=== PATIENT | female | born 1965 | race Caucasian/White ===

== ENCOUNTER 2016-10-04 20:28 | Emergency (ER) | payer MEDICARE ==
[2016-02-03 13:04] VITALS: BMI 37.9
[~2016-10-04 20:28] MED LIST: APAP/BUTALBITAL1 TAB PO; ASCORBIC ACID500 MG PO; CALTRATE-600600 MG PO; KEPPRA500 MG PO; KLONOPIN1 MG PO; LAMICTAL200 MG PO; LEVOTHROID75 MCG PO; MICRO-K10 MEQ PO; MOTRIN600 MG PO; PERCOCET 5/3251 TA1 PO; PHENERGAN25 M1 PO; PRILOSEC20 MG PO; VITAMIN D5000 UNIT PO
[2016-10-04 21:15] LABS: BASOPHILS 0.3 % (0-2); EOSINOPHILS 1.1 % (0-7); HEMOGLOBIN 15.4 g/dL (12-16); IMMATURE GRANULOCYTES 0.3 % (0-5); LYMPHOCYTES 20.7 % (15-50); MCH 30.6 pg (26.0-34.0); MCHC 32.8 g/dL (31.0-37.0); MCV 93.4 fL (80.0-100.0); MEAN PLATELET VOLUME 10.5 fL (7.4-10.4); MONOCYTES 7.5 % (2-11); NEUTROPHILS 70.1 % (40-80); PLATELET COUNT 286 10x3/uL (130-400); RBC 5.03 10x6/uL (4.00-5.40); WBC 12.8 10x3/uL (4.8-10.8)
[2016-10-04 21:42] LABS: BILIRUBIN - TOTAL 0.35 mg/dL (0.2-1.3); CALCIUM 9.5 mg/dL (8.5-10.1); CARBON DIOXIDE 26.3 mmol/L (21.0-32.0); CREATININE - SERUM 0.9 mg/dL (0.6-1.3); POTASSIUM - SERUM 4.3 mmol/L (3.5-5.1); PROTEIN - SERUM 8.2 g/dL (6.4-8.2)
[2016-10-05 01:45] LABS: APPEARANCE CLEAR (CLEAR); BILIRUBIN NEGATIVE (NEGATIVE); COLOR STRAW (YELLOW); GLUCOSE NEGATIVE (NEGATIVE); KETONE NEGATIVE (NEGATIVE); LEUKOCYTE ESTERASE 1+ (NEGATIVE); NITRITE NEGATIVE (NEGATIVE); PROTEIN NEGATIVE (NEGATIVE); UROBILINOGEN NORMAL (NORMAL)
[2016-10-05 01:46] LABS: BACTERIA FEW /hpf (NONE SEEN); EPITHELIAL CELLS 0-5 /hpf (0-5); RED CELLS - URINE 0-5 /hpf (0-5); WHITE CELLS - URINE 0-5 /hpf (0-5)
== END 2016-10-05 03:00 | disposition home or self-care (01) ==
LOC: D.ER 20:28
PROVIDERS: Family Medicine; Physician Assistant Medical
DX: G40.909 Epilepsy, unspecified, not intractable, without status epilepticus (principal)

== ENCOUNTER → 2016-10-07 16:39 | Outpatient (CLI) | payer MEDICARE ==
[2016-02-03 13:04] VITALS: BMI 37.9
== END | disposition home or self-care (01) ==
LOC: D.MAMMO 15:15
DX: Z12.31 Encounter for screening mammogram for malignant neoplasm of breast (principal)

== ENCOUNTER 2016-10-29 21:05 | Emergency (ER) | payer MEDICARE ==
[2016-02-03 13:04] VITALS: BMI 37.9
[2016-10-29 22:05] LABS: APPEARANCE CLEAR (CLEAR); BILIRUBIN NEGATIVE (NEGATIVE); COLOR YELLOW (YELLOW); GLUCOSE NEGATIVE (NEGATIVE); KETONE NEGATIVE (NEGATIVE); LEUKOCYTE ESTERASE NEGATIVE (NEGATIVE); NITRITE NEGATIVE (NEGATIVE); PROTEIN NEGATIVE (NEGATIVE); SPECIFIC GRAVITY 1.005 (1.005-1.020); UROBILINOGEN NORMAL (NORMAL)
[2016-10-29 22:15] LABS: BASOPHILS 0.4 % (0-2); EOSINOPHILS 4.4 % (0-7); HEMATOCRIT 44.5 % (36.0-48.0); HEMOGLOBIN 14.3 g/dL (12-16); IMMATURE GRANULOCYTES 0.2 % (0-5); LYMPHOCYTES 29.6 % (15-50); MCH 30.1 pg (26.0-34.0); MCHC 32.1 g/dL (31.0-37.0); MCV 93.7 fL (80.0-100.0); MONOCYTES 8.3 % (2-11); NEUTROPHILS 57.1 % (40-80); PLATELET COUNT 264 10x3/uL (130-400); RBC 4.75 10x6/uL (4.00-5.40); RDW 14.2 % (11.5-14.5); WBC 9.5 10x3/uL (4.8-10.8)
[2016-10-29 22:38] LABS: ALBUMIN 3.7 g/dL (3.4-5.0); ANION GAP 11.4 mmol/L (8-16); BILIRUBIN - TOTAL 0.42 mg/dL (0.2-1.3); CALCIUM 9.4 mg/dL (8.5-10.1); CARBON DIOXIDE 29.2 mmol/L (21.0-32.0); POTASSIUM - SERUM 3.6 mmol/L (3.5-5.1)
== END 2016-10-29 23:55 | disposition home or self-care (01) ==
LOC: D.ER 21:05
PROVIDERS: Emergency Medicine
DX: G40.909 Epilepsy, unspecified, not intractable, without status epilepticus (principal); R53.1 Weakness; R53.83 Other fatigue; I45.10 Unspecified right bundle-branch block

== ENCOUNTER → 2017-01-30 12:09 | Outpatient (CLI) | payer MEDICARE ==
[2016-02-03 13:04] VITALS: BMI 37.9
== END | disposition home or self-care (01) ==
LOC: D.NM 12:09
DX: R63.4 Abnormal weight loss (principal); R11.2 Nausea with vomiting, unspecified; K21.9 Gastro-esophageal reflux disease without esophagitis

== ENCOUNTER 2017-11-11 21:06 | Emergency (ER) | payer MEDICARE ==
[~2017-11-11] VITALS: Ht 162.6 cm; Wt 90.7 kg
[2017-11-11 21:19] VITALS: Ht 162.6 cm; Wt 90.7 kg
[2017-11-11] MEDS ORDERED: ZESTRIL20 MG PO (21:21)
[2017-11-11] MEDS ORDERED: MYSOLINE 50 MG50 MG PO (21:21)
[2017-11-11 22:39] LABS: BASOPHILS 0.4 % (0-2); HEMATOCRIT 43.1 % (36.0-48.0); HEMOGLOBIN 14.2 g/dL (12-16); IMMATURE GRANULOCYTES 0.3 % (0-5); LYMPHOCYTES 26.5 % (15-50); MCH 29.9 pg (26.0-34.0); MCHC 32.9 g/dL (31.0-37.0); MCV 90.7 fL (80.0-100.0); MEAN PLATELET VOLUME 9.9 fL (7.4-10.4); MONOCYTES 9.3 % (2-11); NEUTROPHILS 61.5 % (40-80); PLATELET COUNT 283 10x3/uL (130-400); RBC 4.75 10x6/uL (4.00-5.40); RDW 14.4 % (11.5-14.5); WBC 8.9 10x3/uL (4.8-10.8)
[2017-11-11 22:55] LABS: ALBUMIN 3.8 g/dL (3.4-5.0); ANION GAP 10.4 mmol/L (8-16); BILIRUBIN - TOTAL 0.37 mg/dL (0.2-1.3); CARBON DIOXIDE 27.8 mmol/L (21.0-32.0); POTASSIUM - SERUM 4.2 mmol/L (3.5-5.1)
[2017-11-12 00:02] LABS: APPEARANCE CLEAR (CLEAR); BILIRUBIN NEGATIVE (NEGATIVE); COLOR YELLOW (YELLOW); GLUCOSE NEGATIVE (NEGATIVE); KETONE NEGATIVE (NEGATIVE); NITRITE NEGATIVE (NEGATIVE); PROTEIN NEGATIVE (NEGATIVE); SPECIFIC GRAVITY 1.015 (1.005-1.020); UROBILINOGEN NORMAL (NORMAL)
[2017-11-12 01:26] VITALS: BP 145/64
== END 2017-11-12 01:05 | disposition home or self-care (01) ==
LOC: D.ER 21:06
PROVIDERS: Family Medicine
DX: F41.9 Anxiety disorder, unspecified (principal); G40.909 Epilepsy, unspecified, not intractable, without status epilepticus; E07.89 Other specified disorders of thyroid

== ENCOUNTER 2018-01-11 12:07 | Emergency (ER) | payer MEDICARE ==
[~2018-01-11] VITALS: Ht 162.6 cm; Wt 100.0 kg
[~2018-01-11 12:07] MED LIST changes: +MYSOLINE 50 MG50 MG PO; +ZESTRIL20 MG PO
[2018-01-11 12:25] VITALS: Ht 162.6 cm; Wt 100.0 kg
[2018-01-11 15:11] LABS: BASOPHILS 0.1 % (0-2); EOSINOPHILS 0 % (0-7); HEMATOCRIT 42.7 % (36.0-48.0); HEMOGLOBIN 14.4 g/dL (12-16); IMMATURE GRANULOCYTES 0.3 % (0-5); LYMPHOCYTES 10.1 % (15-50); MCH 30.6 pg (26.0-34.0); MCHC 33.7 g/dL (31.0-37.0); MCV 90.7 fL (80.0-100.0); MEAN PLATELET VOLUME 10.1 fL (7.4-10.4); MONOCYTES 5.2 % (2-11); NEUTROPHILS 84.3 % (40-80); PLATELET COUNT 304 10x3/uL (130-400); RBC 4.71 10x6/uL (4.00-5.40); RDW 14.5 % (11.5-14.5); WBC 17.6 10x3/uL (4.8-10.8)
[2018-01-11 15:32] LABS: ALBUMIN 3.8 g/dL (3.4-5.0); ANION GAP 15.4 mmol/L (8-16); BILIRUBIN - TOTAL 0.31 mg/dL (0.2-1.3); CALCIUM 9.5 mg/dL (8.5-10.1); CARBON DIOXIDE 26.1 mmol/L (21.0-32.0); CREATININE - SERUM 0.9 mg/dL (0.6-1.3); POTASSIUM - SERUM 4.5 mmol/L (3.5-5.1)
[2018-01-11] MEDS ORDERED: MIRALAX17 GM PO (15:36)
[2018-01-11 18:19] VITALS: BP 135/074
== END 2018-01-11 18:21 | disposition home or self-care (01) ==
LOC: D.ER 12:07
PROVIDERS: Emergency Medicine
DX: J18.9 Pneumonia, unspecified organism (principal); K59.00 Constipation, unspecified; I10 Essential (primary) hypertension; G40.909 Epilepsy, unspecified, not intractable, without status epilepticus

== ENCOUNTER 2018-01-16 17:48 | Emergency (ER) | payer MEDICARE ==
[~2018-01-16] VITALS: Ht 162.6 cm; Wt 100.0 kg
[~2018-01-16 17:48] MED LIST changes: +MIRALAX17 GM PO
[2018-01-16 18:28] VITALS: Ht 162.6 cm; Wt 100.0 kg
[2018-01-16 19:12] LABS: BASOPHILS 0.4 % (0-2); EOSINOPHILS 3.8 % (0-7); HEMATOCRIT 42.2 % (36.0-48.0); HEMOGLOBIN 14.1 g/dL (12-16); IMMATURE GRANULOCYTES 0.3 % (0-5); LYMPHOCYTES 32.3 % (15-50); MCH 30.7 pg (26.0-34.0); MCHC 33.4 g/dL (31.0-37.0); MCV 91.7 fL (80.0-100.0); MONOCYTES 6.9 % (2-11); NEUTROPHILS 56.3 % (40-80); PLATELET COUNT 325 10x3/uL (130-400); RDW 14.6 % (11.5-14.5); WBC 9.8 10x3/uL (4.8-10.8)
[2018-01-16 19:22] LABS: APPEARANCE CLEAR (CLEAR); BILIRUBIN NEGATIVE (NEGATIVE); COLOR STRAW (YELLOW); GLUCOSE NEGATIVE (NEGATIVE); KETONE NEGATIVE (NEGATIVE); NITRITE NEGATIVE (NEGATIVE); PROTEIN NEGATIVE (NEGATIVE); UROBILINOGEN NORMAL (NORMAL)
[2018-01-16 19:22] LABS: ALBUMIN 4.2 g/dL (3.4-5.0); ANION GAP 12.8 mmol/L (8-16); BILIRUBIN - TOTAL 0.39 mg/dL (0.2-1.3); CALCIUM 9.8 mg/dL (8.5-10.1); CARBON DIOXIDE 29.3 mmol/L (21.0-32.0); POTASSIUM - SERUM 4.1 mmol/L (3.5-5.1); PROTEIN - SERUM 8.2 g/dL (6.4-8.2)
[2018-01-16 19:23] LABS: BACTERIA MODERATE /hpf (NONE SEEN); RED CELLS - URINE 0-5 /hpf (0-5)
[2018-01-17] MEDS ORDERED: ACETAMINOPHEN500 M1 PO (00:56)
[2018-01-17] MEDS ORDERED: CYCLOBENZAPRINE10 MG PO (00:56)
[2018-01-17] MEDS ORDERED: IBUPROFEN800 MG PO (00:56)
[2018-01-17 02:20] VITALS: BP 139/85
== END 2018-01-17 02:22 | disposition home or self-care (01) ==
LOC: D.ER 17:48
PROVIDERS: Family Medicine
DX: M54.5 Low back pain (principal); E07.9 Disorder of thyroid, unspecified; I10 Essential (primary) hypertension

== ENCOUNTER 2018-04-20 17:26 | Emergency (ER) | payer MEDICARE ==
[~2018-04-20] VITALS: Ht 162.6 cm; Wt 100.2 kg
[~2018-04-20 17:26] MED LIST changes: +ACETAMINOPHEN500 M1 PO; +CYCLOBENZAPRINE10 MG PO; +IBUPROFEN800 MG PO
[2018-04-20 18:24] VITALS: Ht 162.6 cm; Wt 100.2 kg
[2018-04-20 18:59] LABS: BASOPHILS 0.3 % (0-2); EOSINOPHILS 1.4 % (0-7); HEMATOCRIT 43.5 % (36.0-48.0); HEMOGLOBIN 14.5 g/dL (12-16); IMMATURE GRANULOCYTES 0.6 % (0-5); LYMPHOCYTES 10.2 % (15-50); MCHC 33.3 g/dL (31.0-37.0); MCV 92.9 fL (80.0-100.0); MEAN PLATELET VOLUME 9.8 fL (7.4-10.4); MONOCYTES 13.2 % (2-11); NEUTROPHILS 74.3 % (40-80); PLATELET COUNT 284 10x3/uL (130-400); RBC 4.68 10x6/uL (4.00-5.40); RDW 14.8 % (11.5-14.5); WBC 9.4 10x3/uL (4.8-10.8)
[2018-04-20 19:34] LABS: ALBUMIN 4.3 g/dL (3.4-5.0); ANION GAP 15.4 mmol/L (8-16); BILIRUBIN - TOTAL 0.37 mg/dL (0.2-1.3); CALCIUM 9.2 mg/dL (8.5-10.1); CARBON DIOXIDE 26.7 mmol/L (21.0-32.0); POTASSIUM - SERUM 4.1 mmol/L (3.5-5.1); PROTEIN - SERUM 8.3 g/dL (6.4-8.2)
[2018-04-20] MEDS ORDERED: TESSALON PERLE100 MG PO (21:41)
[2018-04-20] MEDS ORDERED: TAMIFLU75 MG PO (21:41)
[2018-04-20] MEDS ORDERED: ACETAMINOPHEN500 M1 PO (21:41)
[2018-04-20 22:00] VITALS: BP 135/90
== END 2018-04-20 22:00 | disposition home or self-care (01) ==
LOC: D.ER 17:26
PROVIDERS: Family Medicine
DX: J09.X2 Influenza due to identified novel influenza A virus with other respiratory manifestations (principal)

== ENCOUNTER 2018-06-01 19:52 | Inpatient (IN) | payer MEDICARE ==
[~2018-06-01] VITALS: Ht 162.6 cm; Wt 101.4 kg
[~2018-06-01 19:52] MED LIST changes: +TAMIFLU75 MG PO; +TESSALON PERLE100 MG PO
--- NOTE | 2018-06-01 20:14 | NUR ---
PT IN WITH C/O NEAR SYNCOPE, DIAGNOSED WITH THE FLU 3 DAYS AGO, FELL YESTERDAY, STATES SHE STARTING FEELING LIKE SHE WAS GOING TO FALL AGAIN, CALLED EMS. CALL LIGHT WITHIN IN REACH, PT IS A+O X3.
[2018-06-01 21:02] LABS: BASOPHILS 0.6 % (0-2); EOSINOPHILS 1.7 % (0-7); HEMATOCRIT 44.5 % (36.0-48.0); HEMOGLOBIN 14.4 g/dL (12-16); IMMATURE GRANULOCYTES 0.4 % (0-5); MCHC 32.4 g/dL (31.0-37.0); MCV 92.7 fL (80.0-100.0); MEAN PLATELET VOLUME 10.6 fL (7.4-10.4); MONOCYTES 13.8 % (2-11); NEUTROPHILS 54.5 % (40-80); PLATELET COUNT 247 10x3/uL (130-400); RDW 14.8 % (11.5-14.5); WBC 7.1 10x3/uL (4.8-10.8)
[2018-06-01 21:18] LABS: APTT 29.3 SECONDS (22.8-39.4); INR 1.02 (0.85-1.17); PROTIME 12.9 SECONDS (11.6-15.0)
[2018-06-01 21:33] LABS: ALBUMIN 3.7 g/dL (3.4-5.0); ALKALINE PHOSPHATASE 141 U/L (46-116); ALT (SGPT) 23 U/L (10-68); BILIRUBIN - TOTAL 0.43 mg/dL (0.2-1.3); CALC OSMOLALITY 275 mosm/kg (275-300); CARBON DIOXIDE 26.5 mmol/L (21.0-32.0); CHLORIDE - SERUM 101 mmol/L (98-107); CREATININE - SERUM 0.8 mg/dL (0.6-1.3); GLUCOSE 99 mg/dL (74-106); POTASSIUM - SERUM 4.1 mmol/L (3.5-5.1); PROTEIN - SERUM 7.8 g/dL (6.4-8.2); SODIUM 138 mmol/L (136-145); UREA NITROGEN 12 mg/dL (7-18); eGFR NON AFRICAN AMERICAN 79 mL/min (90-120)
[2018-06-01 21:42] LABS: CREATINE KINASE 97 UL (21-215)
[2018-06-01 21:51] LABS: TROPONIN-I 0.219 ng/mL (0.000-0.060)
[2018-06-01 22:00] VITALS: BP 131/80
[2018-06-01 22:24] LABS: APPEARANCE CLEAR (CLEAR); BILIRUBIN NEGATIVE (NEGATIVE); COLOR YELLOW (YELLOW); GLUCOSE NEGATIVE (NEGATIVE); KETONE NEGATIVE (NEGATIVE); NITRITE NEGATIVE (NEGATIVE); PROTEIN NEGATIVE (NEGATIVE); SPECIFIC GRAVITY 1.005 (1.005-1.020); UROBILINOGEN NORMAL (NORMAL)
[2018-06-01 22:25] LABS: BACTERIA FEW /hpf (NONE SEEN); RED CELLS - URINE OCC /hpf (0-5); WHITE CELLS - URINE OCC /hpf (0-5)
--- NOTE | 2018-06-01 23:30 | NUR ---
ATTEMPTED TO CALL REPORT, THE NURSE WILL CALL ME BACK.
--- NOTE | 2018-06-01 23:43 | NUR ---
EMERGENCY CONTACT: TAHIR LEE [phone] CA[employer] TR[employer]MER FROM [facility].
--- NOTE | 2018-06-02 00:02 | NUR ---
ATTEMPTED TO CALL REPORT, NURSE IN IN A PATIENTS ROOM THEY WILL HAVE HER CALL ME BACK.
--- NOTE | 2018-06-02 00:08 | NUR ---
ATTEMPTED TO CALL REPORT, NURSE STILL IN PATIENT ROOM AND SHE WILL CALL ME BACK.
--- NOTE | 2018-06-02 00:55 | NUR ---
53 yr old female admitted from ED to Med 2. Alert and oriented x 4 but slow to answer. At times answers don't relate to the questions asked. States she lives in an [facility] across from [facility]. does not know the name. has been having dizzy spells for about two weeks and has been geting weaker. Feels like her movements are slower, states her teacher at [facility] also noticed she was not moving right. has fallen x 2 on 05/30 and 05/31/18. States she hit her head. Had CT head scan in ED. No complaints of pain or discomfort at this time. Settled into room 217.
[2018-06-02 01:12] VITALS: BP 126/83
--- NOTE | 2018-06-02 02:35 | NUR ---
Eyes closed, sleeping, respirations easy and regular.
[2018-06-02 04:11] VITALS: BP 118/69
--- NOTE | 2018-06-02 06:50 | NUR ---
Second EKG done, first was done in ED.
[2018-06-02 09:13] VITALS: BP 121/71
[2018-06-02 11:30] VITALS: BP 102/65; BP 120/66; BP 74/28
--- NOTE | 2018-06-02 12:27 | NUR ---
ORTHOSTATIC BP COMPLETE: LYING 102/65, 91 SITTING 74/28, 91 STANDING 120/66, 84
--- NOTE | 2018-06-02 12:44 | NUR ---
BILAT SCDS ON.
[2018-06-02 15:30] VITALS: BP 102/53; BP 102/59; BP 121/63
--- NOTE | 2018-06-02 16:00 | NUR ---
1530 ORHTOSTATIC BLOOD PRESSURES COMPLETE LYING 102/53, 88 SITTING 102/59, 87 STANDING 121/63, 100
[2018-06-02 19:45] VITALS: BP 102/53
--- NOTE | 2018-06-02 19:55 | NUR ---
INITIAL ROUNDS COMPLETED AT 1910 HRS. PT DENIED ANY DISCOMFORT. ASSESSMENT COMPLETED AT 1950 HRS. VSS. ALERT AND ORIENTED. IV TO RFA WITH NS AT 50CC/HR. IV PATENT. SR PER CM HR 85. LUNGS DIMINISHED IN BASES BILAT. TORRES. SCD'S IN USE. REMOVED AND SKIN INSPECTED. NO BREAKDOWN NOTED. WILL CONTINUE TO MONITOR. SR UP X2, CALL LIGHT WITHIN REACH.
--- NOTE | 2018-06-02 21:49 | NUR ---
SHOWER DONE. BED LINENS CHANGED. PT DENIED ANY DISCOMFORT. PM MEDS GIVEN. SR UP X2,CALL LIGHT WITHIN REACH.
[2018-06-03] VITALS (8 sets, daily range): BP systolic 100–148; BP diastolic 54–76
--- NOTE | 2018-06-03 00:20 | NUR ---
PT AWAKE; DENIES ANY DISCOMFORT. ORTHOSTATIC VS DONE. LYING HR 78 BP 109/65. SITTING HR 79 BP 135/73. STANDING HR 89 BP 109/70. CALL LIGHT WITHIN REACH.
--- NOTE | 2018-06-03 02:43 | NUR ---
PT RESTING WITH EYES CLOSED. RESP EVEN AND REGULAR. SR UP X2, CALL LIGHT WITHIN REACH.
--- NOTE | 2018-06-03 04:34 | NUR ---
PT RESTING WITH EYES CLOSED. RESP EVEN AND REGULAR. SR UP X2, CALL LIGHT WITHIN REACH.
[2018-06-03 04:58] LABS: BASOPHILS 0.4 % (0-2); EOSINOPHILS 3.4 % (0-7); HEMATOCRIT 39.6 % (36.0-48.0); HEMOGLOBIN 12.7 g/dL (12-16); IMMATURE GRANULOCYTES 0.5 % (0-5); LYMPHOCYTES 38.9 % (15-50); MCHC 32.1 g/dL (31.0-37.0); MCV 93.4 fL (80.0-100.0); MEAN PLATELET VOLUME 10.2 fL (7.4-10.4); MONOCYTES 14.7 % (2-11); NEUTROPHILS 42.1 % (40-80); PLATELET COUNT 243 10x3/uL (130-400); RBC 4.24 10x6/uL (4.00-5.40); RDW 15.4 % (11.5-14.5); WBC 7.3 10x3/uL (4.8-10.8)
[2018-06-03 05:34] LABS: CALC OSMOLALITY 282 mosm/kg (275-300); CALCIUM 8.3 mg/dL (8.5-10.1); CARBON DIOXIDE 24.9 mmol/L (21.0-32.0); CHLORIDE - SERUM 107 mmol/L (98-107); CREATININE - SERUM 0.8 mg/dL (0.6-1.3); GLUCOSE 97 mg/dL (74-106); POTASSIUM - SERUM 3.7 mmol/L (3.5-5.1); SODIUM 142 mmol/L (136-145); UREA NITROGEN 13 mg/dL (7-18); eGFR NON AFRICAN AMERICAN 79 mL/min (90-120)
--- NOTE | 2018-06-03 06:23 | NUR ---
VSS THROUGHOUT NIGHT. SR PER CM. PT DENIED ANY DISCOMFORT. NEEDS MET;WILL CONTINUE TO MONITOR.
--- NOTE | 2018-06-03 10:52 | NUR ---
LEAVING FOR CT BY BED.
--- NOTE | 2018-06-03 19:55 | NUR ---
INITIAL ROUNDS COMPLETED AT 1910 HRS. PT DENIED ANY DISCOMFORT. ASSESSMENT COMPLETED AT 1935HRS. SR PER CMHR 82. IV TO RFA WITH NS AT 50CC/HR. IV PATENT. LUNGS DIMINISHED IN BASES BILAT. TORRES. PALBAPLE PERIPHERAL PULSES. SCD'S IN USE. REMOVED AND SKIN INSPECTED. NO BREAKDOWN NOTED. SR UP X2,CALL LIGHT WITHIN REACH.
--- NOTE | 2018-06-03 22:25 | NUR ---
PM MEDS GIVEN. PT CURRENTLY RESTING WITH EYES CLOSED. RESP EVEN AND REGULAR. SR UP X2, CALL LIGHT WITHIN REACH.
[2018-06-04] VITALS (7 sets, daily range): BP systolic 103–138; BP diastolic 51–77; Ht 162.6 cm; Wt 101.4 kg
--- NOTE | 2018-06-04 00:14 | NUR ---
PT RESTING WITH EYES CLOSED. RESP EVEN AND REGULAR. SR UP X2, CALL LIGHT WITHIN REACH.
--- NOTE | 2018-06-04 02:06 | NUR ---
PT RESTING WITH EYES CLOSED. RESP EVEN AND REGULAR. SR UP X2, CALL LIGHT WITHIN REACH.
--- NOTE | 2018-06-04 03:51 | NUR ---
PT RESTING WITH EYES CLOSED. RESP EVEN AND REGULAR. SR UP X2, CALL LIGHT WITHIN REACH.
--- NOTE | 2018-06-04 05:53 | NUR ---
VSS THROUGHOUT NIGHT. SR PER CM. PT DENIED ANY DISCOMFORT. NEEDS MET; WILL CONTINUE TO MONITOR.
[2018-06-04 06:11] LABS: BASOPHILS 0.5 % (0-2); EOSINOPHILS 5.7 % (0-7); HEMATOCRIT 40.4 % (36.0-48.0); HEMOGLOBIN 12.9 g/dL (12-16); IMMATURE GRANULOCYTES 0.2 % (0-5); LYMPHOCYTES 35.1 % (15-50); MCH 29.8 pg (26.0-34.0); MCHC 31.9 g/dL (31.0-37.0); MCV 93.3 fL (80.0-100.0); MEAN PLATELET VOLUME 10.2 fL (7.4-10.4); MONOCYTES 8.5 % (2-11); PLATELET COUNT 268 10x3/uL (130-400); RBC 4.33 10x6/uL (4.00-5.40); RDW 15.2 % (11.5-14.5)
[2018-06-04 06:19] LABS: CALC OSMOLALITY 279 mosm/kg (275-300); CALCIUM 8.6 mg/dL (8.5-10.1); CARBON DIOXIDE 25.8 mmol/L (21.0-32.0); CHLORIDE - SERUM 105 mmol/L (98-107); CREATININE - SERUM 0.7 mg/dL (0.6-1.3); GLUCOSE 98 mg/dL (74-106); SODIUM 141 mmol/L (136-145); UREA NITROGEN 11 mg/dL (7-18); eGFR NON AFRICAN AMERICAN > 90 mL/min (90-120)
--- NOTE | 2018-06-04 20:35 | NUR ---
RESUMING PATIENT CARE. PATIENT IS ALERT AND ORIENTED. RESPIRATIONS ARE EVEN AND UNLABORED. NO S/S OF DISTRESS. NO C/O PAIN. CALL LIGHT WITHIN REACH. WILL CPOC.
[2018-06-05 01:20] VITALS: BP 118/65
[2018-06-05 01:24] VITALS: BP 133/73
[2018-06-05 01:25] VITALS: BP 134/77
--- NOTE | 2018-06-05 02:27 | NUR ---
ORTHOSTATIC VITALS COMPLETE: LAYING BP 118/65, SITTING BP 133/73, STANDING BP 134/77
--- NOTE | 2018-06-05 02:47 | NUR ---
PATIENT RESTING COMFORTABLY IN BED. RESPIRATIONS ARE EVEN AND UNLABORED. NO S/S OF DISTRESS. NS INFUSING AT 50 ML/HR. CALL LIGHT WITHIN REACH. WILL CPOC.
[2018-06-05 05:33] VITALS: BP 124/67
[2018-06-05 08:00] VITALS: BP 110/40
--- NOTE | 2018-06-05 08:00 | NUR ---
PT RESTING IN BED, SHIFT ASSESSMENT PERFORMED. AM MEDS GIVEN ORDERED, DENIES PAIN AT THIS TIME, DENIES ANY OTHER NEEDS AT THIS TIME, CALL LIGHT WITHIN REACH, WILL CONT TO FOLLOW PLAN OF CARE
--- NOTE | 2018-06-05 09:49 | NUR ---
PAGED TO INQUIRE PLANNING AND HE STATES HE WILL DISCUSS WITH ALL TEST WERE NEGATIVE FOR CLOT. DISCUSSED WITH PT AND FAMILY AND WILL CTM.
[2018-06-05 11:40] VITALS: BP 122/86
--- NOTE | 2018-06-05 14:47 | MORECARE ---
CASE MANAGEMENT DISCHARGE SUMMARY PATIENT: JAKE HAGEN UNIT: [id number] ADM DATE: 06/02/18 AGE: 53 : 63 SEX: F ROOM/BED: D.1367 AUTHOR: GREGORY BETH PHYSICIAN: REFERRING PHYSICIAN: EHSAN COYLE MD DATE OF SERVICE: 06/05/18 Discharge Plan Patient Name: JAKE HAGEN Facility: [facility]:[place] : 1965 Planned Disposition: Home Anticipated Discharge Date: 06/05/18 Discharge Date: Expected LOS: 3 Initial Reviewer: [email or web address] Initial Review Date: 06/01/2018 Generated: 06/05/18 3:47 pm Patient Name: JAKE HAGEN Page [id number] at 1447 All edits/amendments must be made on the electronic document DICTATION DATE: 06/05/18 1446 BATT PACKER: YAYO 06/05/18 1446 RPT#: [id number] DC DATE: STATUS: ADM IN [facility] [address] [place] [address] END OF REPORT
--- NOTE | 2018-06-05 14:56 | MORECARE ---
CASE MANAGEMENT DISCHARGE SUMMARY PATIENT: JAKE HAGEN UNIT: [id number] ADM DATE: 06/02/18 AGE: 53 : 63 SEX: F ROOM/BED: D.7566 AUTHOR: GREGORY BETH PHYSICIAN: REFERRING PHYSICIAN: EHSAN COYLE MD DATE OF SERVICE: 06/05/18 Discharge Plan Patient Name: JAKE HAGEN Facility: [facility]:[place] : 1965 Planned Disposition: Home Anticipated Discharge Date: 06/05/18 Discharge Date: Expected LOS: 3 Initial Reviewer: [email or web address] Initial Review Date: 06/01/2018 Generated: 06/05/18 3:55 pm DCPIA - Discharge Planning Initial Assessment Updated by [email or web address]: Nba Hernandez on 06/05/18 2:51 pm * Is the patient Alert and Oriented? Yes * How many steps to enter\exit or inside your home? NONE * PCP DR. SMITH * Pharmacy [facility] * Preadmission Environment Home Alone * ADLs Partial Dependent * Partial ADLs (Assistance needed) Medication Management * Equipment Shower Chair Walker * Other Equipment NO MEDICAL EQUIPMENT PROVIDER PREFERENCE * List name and contact numbers for known caregivers / representatives who currently or will assist patient after discharge: PATRICK HAGEN, BROTHER, CIRILO SEALS, [facility], TAHIR, [facility] HORSE SHOW MANAGER, * Verbal permission to speak to the caregivers and representatives has been obtained from the patient. Yes * Community resources currently utilized [facility] * Please name any agencies selected above. [facility], [place] - [place], 2 HOURS PER DAY, COOKING AND MEDICATION MANAGEMENT ATTENDS [facility] CLASSES M-F MEDICAID [place] [facility]SP[facility] UTILIZED * Additional services required to return to the preadmission environment? No * Can the patient safely return to the preadmission environment? Yes * Has this patient been hospitalized within the prior 30 days at any hospital? No Last DP export: 06/05/18 1:47 p Patient Name: JAKE HAGEN Page [id number] at 1456 All edits/amendments must be made on the electronic document DICTATION DATE: 06/05/181454 WARDROBE STYLIST: YAYO 06/05/181454 RPT#: [id number] DC DATE: STATUS: ADM IN [facility] [address] [place] [address] END OF REPORT
--- NOTE | 2018-06-05 15:05 | MORECARE ---
CASE MANAGEMENT DISCHARGE SUMMARY PATIENT: JAKE HAGEN UNIT: [id number] ADM DATE: 06/02/18 AGE: 53 : 63 SEX: F ROOM/BED: D.1753 AUTHOR: KIRIT,DOC PHYSICIAN: REFERRING PHYSICIAN: EHSNA COYLE MD DATE OF SERVICE: 06/05/18 Discharge Plan Patient Name: JAKE HAGEN Facility: [facility]:[place] : 1965 Planned Disposition: Home Anticipated Discharge Date: 06/05/18 Discharge Date: Expected LOS: 3 Initial Reviewer: [email or web address] Initial Review Date: 06/01/2018 Generated: 06/05/18 4:05 pm Comments DCP- Discharge Planning Updated by [email or web address]: Nba Hernandez on 06/05/18 2:[address] Patient Name: JAKE HAGEN Admission Status: ER Accout number: [id number] Admission Date: 06-02-2018 : 1965 Admission Diagnosis: Attending: EHSAN COYLE Current LOS: 3 Anticipated DC Date: 06-05-2018 Planned Disposition: Home Primary Insurance: MEDICARE A & B Discharge Planning Comments: CM MET WITH PT IN ROOM TO DISCUSS DISCHARGE PLANNING AND NEEDS. PT REPORTS LIVING AT HOME [facility] ON [facility] IN [facility]; PT HAS ASSISTANCE WITH COOKING AND MEDICATION MANAGEMENT, ONE HOUR IN MORNING AND ONE HOUR IN AFTERNOON. PT ATTENDS [facility] MONDAY THROUGH MONDAY AND [employer] MEDICAID TRANSPORTATION BUS. PT HAS WALKER THAT SHE IS NOT USING AND SHOWER CHAIR. PT HAS NO MEDICAL EQUIPMENT PROVIDER PREFERENCE. CM DISCUSSED AVAILABILITY OF HOME HEALTH, REHAB SERVICES AND MEDICAL EQUIPMENT. PT DENIES DISCHARGE NEEDS, REPORTS HER BROTHER IS ON THE WAY TO PICK HER UP FOR DISCHARGE HOME TODAY. CM CALLED [employer] FOR [facility], , LEFT MESSAGE ASKING FOR RETURN CALL. CM CALLED [facility] AT [phone], LEFT MESSAGE ASKING FOR RETURN CALL. PT'S BROTHER, PATRICK, ARRIVED, INFORMED CM THAT PT LIVES IN [facility]DEPENDENT LIVING APARTMENT AND HE IS TAKING PT HOME TODAY. PATRICK STATES THAT IF [facility] CALLS BACK TO LET THEM KNOW "ANTHONY" IS BRINGING PT HOME TODAY. CM NOTIFIED BEDSIDE NURSE. CM RECEIVED CALL FROM CARMALISA, ENAMEL SHADER ON [address] FOR [facility], WHO INFORMED CM THAT THEY ARE HOME TO RECEIVE PT. CM ADVISED THAT PT'S BROTHER WILL BE TRANSPORTING. SARAHI THANKED CM FOR ASSISTANCE. NO FURTHER NEEDS NOTED. Ui Programmer: Nba [place] DCPIA - Discharge Planning Initial Assessment Updated by [id number]: Nba Hernandez on 06/05/18 2:51 pm * Is the patient Alert and Oriented? Yes * How many steps to enter\\exit or inside your home? NONE * PCP DR. SMITH * Pharmacy [facility] * Preadmission Environment Home Alone * ADLs Partial Dependent * Partial ADLs (Assistance needed) Medication Management * Equipment Shower Chair Walker * Other Equipment NO MEDICAL EQUIPMENT PROVIDER PREFERENCE * List name and contact numbers for known caregivers / representatives who currently or will assist patient after discharge: PATRICK HAGEN, BROTHER, CIRILO SEALS, [facility], TAH[facility], [facility] CLINICAL PHARMACY TECHNICIAN, * Verbal permission to speak to the caregivers and representatives has been obtained from the patient. Yes * Community resources currently utilized Private [facility] * Please name any agencies selected above. [facility], M - [place], 2 HOURS PER DAY, COOKING AND MEDICATION MANAGEMENT ATTENDS [facility] CLASSES M-F MEDICAID [facility] TRANSPORTATION UTILIZED * Additional services required to return to the preadmission environment? No * Can the patient safely return to the preadmission environment? Yes * Has this patient been hospitalized within the prior 30 days at any hospital? No Last DP export: 06/05/18 1:55 p Patient Name: JAKE HAGEN Page 03190 at 1505 All edits/amendments must be made on the electronic document DICTATION DATE: 06/05/18 150 HEMMER CHAINSTITCH: YAYO 06/05/18 150 RPT#: [id number] [place] DATE: STATUS: ADM IN [facility] [address] [place] [address] END OF REPORT
--- NOTE | 2018-06-05 15:48 | NUR ---
DISCHARGE INSTRUCTIONS REVIEWED WITH PT, ALL QUESTIONS ANSWERED. PIV REMOVED WITH CATHETER TIP INATCT. TELEMETRY REMOVED AND GIVEN TO KORY, MIX HOUSE OPERATOR. ASSISTED PT OUT OF HOSPITAL GOWN AND INTO HER REGULAR CLOTHES. CALLED REPORT TO NURSE AT [facility]. PT ASSISTED TO FRONT OF HOSPITAL VIA WHEELCHAIR, PT LEFT WITH HER BROTHER
[2018-06-05] MEDS ORDERED: MACROBID100 MG PO (22:10)
== END 2018-06-05 15:50 | disposition home or self-care (01) | DRG 312 ==
LOC: D.ER 19:52 → OBSVTIME 22:31 → D.EDHOLD 22:31 → D.M2 23:07
PROVIDERS: Family Medicine; ADMIT Family Medicine; ATTEND Family Medicine
DX: R55 Syncope and collapse (principal); R56.9 Unspecified convulsions; K21.9 Gastro-esophageal reflux disease without esophagitis; F41.9 Anxiety disorder, unspecified; I10 Essential (primary) hypertension; I95.9 Hypotension, unspecified; R79.89 Other specified abnormal findings of blood chemistry

== ENCOUNTER 2018-06-05 18:50 | Emergency (ER) | payer MEDICARE ==
[~2018-06-05] VITALS: Ht 162.6 cm; Wt 100.9 kg
[2018-06-05 19:02] VITALS: Ht 162.6 cm; Wt 100.9 kg
[2018-06-05 20:53] LABS: APPEARANCE CLEAR (CLEAR); BILIRUBIN NEGATIVE (NEGATIVE); COLOR STRAW (YELLOW); GLUCOSE NEGATIVE (NEGATIVE); KETONE NEGATIVE (NEGATIVE); NITRITE NEGATIVE (NEGATIVE); PROTEIN NEGATIVE (NEGATIVE); SPECIFIC GRAVITY 1.005 (1.005-1.020); UROBILINOGEN NORMAL (NORMAL)
[2018-06-05 20:54] LABS: BACTERIA FEW /hpf (NONE SEEN); EPITHELIAL CELLS 0-5 /hpf (0-5); RED CELLS - URINE 0-5 /hpf (0-5); WHITE CELLS - URINE 0-5 /hpf (0-5)
[2018-06-05 21:49] LABS: BASOPHILS 0.3 % (0-2); EOSINOPHILS 2.5 % (0-7); HEMATOCRIT 41.9 % (36.0-48.0); HEMOGLOBIN 13.6 g/dL (12-16); IMMATURE GRANULOCYTES 0.4 % (0-5); LYMPHOCYTES 28.5 % (15-50); MCHC 32.5 g/dL (31.0-37.0); MCV 92.5 fL (80.0-100.0); MEAN PLATELET VOLUME 9.6 fL (7.4-10.4); MONOCYTES 4.8 % (2-11); NEUTROPHILS 63.5 % (40-80); PLATELET COUNT 309 10x3/uL (130-400); RBC 4.53 10x6/uL (4.00-5.40); RDW 14.9 % (11.5-14.5)
[2018-06-05 21:52] LABS: WBC 9.1 10x3/uL (4.8-10.8)
[2018-06-05 22:04] LABS: ALBUMIN 3.7 g/dL (3.4-5.0); ANION GAP 13.9 mmol/L (8-16); BILIRUBIN - TOTAL 0.4 mg/dL (0.2-1.3); CALCIUM 9.6 mg/dL (8.5-10.1); CARBON DIOXIDE 26.3 mmol/L (21.0-32.0); POTASSIUM - SERUM 4.2 mmol/L (3.5-5.1); PROTEIN - SERUM 8.2 g/dL (6.4-8.2)
[2018-06-05] MEDS ORDERED: MACROBID100 MG PO (22:10)
[2018-06-05 22:11] LABS: CREATININE - SERUM 0.9 mg/dL (0.6-1.3)
== END 2018-06-06 07:09 | disposition home or self-care (01) ==
LOC: D.ER 18:50
PROVIDERS: Family Medicine
DX: N39.0 Urinary tract infection, site not specified (principal); R42 Dizziness and giddiness

== ENCOUNTER 2019-02-07 17:16 | Observation (INO) | payer MEDICARE, OTHER ==
[~2019-02-07] VITALS: Ht 162.6 cm; Wt 97.8 kg
[~2019-02-07 17:16] MED LIST changes: +MACROBID100 MG PO
--- NOTE | 2019-02-07 18:37 | NUR ---
RECEIVED PT FROM ADMISSIONS. PT IS AAO AND UP AD DAYANA. QUICKSTART AND MED REQ COMPLETE. WILL CTM.
[2019-02-07 20:00] VITALS: BP 110/66
[2019-02-07 20:40] LABS: BASOPHILS 0.4 % (0-2); EOSINOPHILS 3.4 % (0-7); HEMATOCRIT 42.3 % (36.0-48.0); HEMOGLOBIN 13.6 g/dL (12-16); IMMATURE GRANULOCYTES 0.2 % (0-5); LYMPHOCYTES 31.8 % (15-50); MCH 30.8 pg (26.0-34.0); MCHC 32.2 g/dL (31.0-37.0); MCV 95.9 fL (80.0-100.0); MEAN PLATELET VOLUME 10.2 fL (7.4-10.4); MONOCYTES 5.8 % (2-11); NEUTROPHILS 58.4 % (40-80); PLATELET COUNT 272 10x3/uL (130-400); RBC 4.41 10x6/uL (4.00-5.40); RDW 14.3 % (11.5-14.5); WBC 9.1 10x3/uL (4.8-10.8)
[2019-02-07 21:14] LABS: ALBUMIN 3.8 g/dL (3.4-5.0); ALKALINE PHOSPHATASE 127 U/L (46-116); ALT (SGPT) 23 U/L (10-68); BILIRUBIN - TOTAL 0.35 mg/dL (0.2-1.3); CALC OSMOLALITY 289 mosm/kg (275-300); CALCIUM 9.2 mg/dL (8.5-10.1); CARBON DIOXIDE 23.2 mmol/L (21.0-32.0); CHLORIDE - SERUM 108 mmol/L (98-107); CKMB 0.5 U/L (0.0-3.6); CREATINE KINASE 100 UL (21-215); GLUCOSE 128 mg/dL (74-106); POTASSIUM - SERUM 3.8 mmol/L (3.5-5.1); PROTEIN - SERUM 7.7 g/dL (6.4-8.2); SODIUM 144 mmol/L (136-145); TROPONIN-I < 0.017 ng/mL (0.000-0.060); UREA NITROGEN 15 mg/dL (7-18); eGFR NON AFRICAN AMERICAN 61 mL/min (90-120)
[2019-02-07 23:29] VITALS: BP 110/66; Ht 162.6 cm; Wt 97.8 kg
[2019-02-08] VITALS: BP 117/66
[2019-02-08 04:30] VITALS: BP 100/58
[2019-02-08 05:32] LABS: BASOPHILS 0.4 % (0-2); EOSINOPHILS 4.1 % (0-7); HEMATOCRIT 43.3 % (36.0-48.0); HEMOGLOBIN 13.6 g/dL (12-16); IMMATURE GRANULOCYTES 0.3 % (0-5); LYMPHOCYTES 33.8 % (15-50); MCH 29.9 pg (26.0-34.0); MCHC 31.4 g/dL (31.0-37.0); MCV 95.2 fL (80.0-100.0); MEAN PLATELET VOLUME 10.1 fL (7.4-10.4); NEUTROPHILS 52.4 % (40-80); PLATELET COUNT 262 10x3/uL (130-400); RBC 4.55 10x6/uL (4.00-5.40); RDW 14.5 % (11.5-14.5); WBC 7.1 10x3/uL (4.8-10.8)
[2019-02-08 06:27] LABS: ALBUMIN 3.5 g/dL (3.4-5.0); ALKALINE PHOSPHATASE 112 U/L (46-116); ALT (SGPT) 18 U/L (10-68); BILIRUBIN - TOTAL 0.47 mg/dL (0.2-1.3); CALC OSMOLALITY 283 mosm/kg (275-300); CARBON DIOXIDE 25.8 mmol/L (21.0-32.0); CHLORIDE - SERUM 106 mmol/L (98-107); CKMB 0.3 U/L (0.0-3.6); CREATINE KINASE 83 UL (21-215); CREATININE - SERUM 0.9 mg/dL (0.6-1.3); GLUCOSE 98 mg/dL (74-106); POTASSIUM - SERUM 4.2 mmol/L (3.5-5.1); SODIUM 142 mmol/L (136-145); TROPONIN-I < 0.017 ng/mL (0.000-0.060); UREA NITROGEN 16 mg/dL (7-18); eGFR NON AFRICAN AMERICAN 69 mL/min (90-120)
--- NOTE | 2019-02-08 07:33 | NUR ---
REPORT RECEIVED. WILL CONTINUE WITH POC. PT CURRENTLY LYING SEMI FOWLERS. CALL LIGHT W/I REACH. PT IS RESTING WITH EYES CLOSED AT THIS TIME. NO S/S OF DISTRESS NOTED. RR EVEN AND UNLABORED ON RA. R.FOR PIV IS SALINE LOCKED. PT DENIES ANY NEEDS AT THIS TIME. WILL CTM.
[2019-02-08 08:00] VITALS: BP 115/65
[2019-02-08 12:00] VITALS: BP 123/75
--- NOTE | 2019-02-08 13:42 | NUR ---
I have reviewed this patient and I concur with the Shift Assessment completed by the Licensed Practical Nurse today this shift.
[2019-02-08 14:38] LABS: CKMB 0.7 U/L (0.0-3.6); CREATINE KINASE 94 UL (21-215); TROPONIN-I < 0.017 ng/mL (0.000-0.060)
[2019-02-08 16:47] VITALS: BP 126/68
--- NOTE | 2019-02-08 17:39 | NUR ---
PT DISCHARGED HOME VIA WHEELCHAIR WITH FAMILY. PIV REMOVED WITH CATHETER TIP FULLY INTACT. TELEMETRY REMOVED AND RETURNED. PT SIGNED PROPER DISCHARGE INSTRUCTIONS AND REMOVED ALL VALUABLES FROM THE ROOM.
== END 2019-02-08 17:40 | disposition home or self-care (01) ==
LOC: D.M2 17:16 → OBSVTIME 17:37 → D.M2 02-08 17:40
PROVIDERS: ADMIT Family Medicine; ATTEND Family Medicine
DX: R07.9 Chest pain, unspecified (principal); G40.909 Epilepsy, unspecified, not intractable, without status epilepticus; I10 Essential (primary) hypertension; K21.9 Gastro-esophageal reflux disease without esophagitis; E11.9 Type 2 diabetes mellitus without complications; B96.81 Helicobacter pylori [H. pylori] as the cause of diseases classified elsewhere